=== PATIENT | female | born 1985 | race Caucasian/White ===

== ENCOUNTER 2024-04-06 23:13 | Emergency (ER) | payer OTHER, SELFPAY ==
[2024-04-06 23:19] VITALS: BP 172/105
--- NOTE | 2024-04-07 00:34 | ED.GENMED ---
History of Present Illness
General
Chief Complaint: Fall
Source: patient
Exam Limitations: none
Time Seen by Provider: 04/07/24 00:14
History of Present Illness
History of Present Illness:
This is a 38 year old female that comes in with c/o fall. States that she was just clumsy as she was in the shower and had put her foot up on the ledge. States that her foot fell off and she fell face first into the ledge. States that everything
went black but she did not pass out as she called her right away. states that he heard her fall. States that she was a little nauseated at first. States that she does have a headache. Denies any fever, chills, chest pain, SOB, abd
pain, vomiting, diarrhea, dizziness, urinary burning.
Past History
Past History
ED Past Medical History: Psychiatric (Anxiety, Depression) and Other (endometriosis, Interstitial cystitis. Ovarian cyst)
ED Past Surgical History: None
Social History
Tobacco: Non-smoker
Alcohol: Occasional
Personal:
Living: with family
Review of Systems
Review of Systems
All Other Systems: ROS reviewed and negative except as documented in HPI and ROS
Constitutional: Reports no symptoms; Denies fever or chills
EENT: Reports other (obvious deformity of the nose)
Respiratory: Reports no symptoms; Denies cough or trouble breathing
Cardiac: Reports no symptoms; Denies chest pain
ABD/GI: Reports nausea; Denies abdominal pain, vomiting or diarrhea
: Reports no symptoms; Denies dysuria, frequency or urgency
Musculoskeletal: Reports joint pain (Right knee and right upper arm feels numb)
Skin: Reports other (abrasion to the nose and forehead)
Neurological: Reports headache; Denies dizzy
Psychiatric: Reports no symptoms
Phy Exam
General Physical Exam
General Presentation: mild distress
General age: appears stated age
General Skin: warm and dry
General Habitus: normal
General Mental: alert
General Hydration: appears well hydrated
ENT Exam
ENT Exam: TM's normal, pharynx normal and neck supple
Eye Exam
Eye Exam: EOMI
Cardiovascular Exam
Cardiovascular Exam: regular rate/rhythm, no edema, no murmur and normal peripheral pulses
Pulmonary Exam
Pulmonary Exam: lungs clear, no respiratory distress, no rales, chest non tender, no crackles, no rhonchi, no wheezing and no cough
Gastrointestinal Exam
Gastrointestinal Exam: normal bowel sounds, soft, no organomegaly, no pulsatile mass and non distended
Musculoskeletal Exam
Musculoskeletal Exam: other (Obvious deformity of the nose. Negative for discomfort with palpation medial and lateral knee, tender only over contusion. Negative for discomfort with flexion of the knee. Full ROM of the right arm. Negative cervical
tenderness)
Skin Exam
Skin Exam: normal color, warm/dry, no rash, no petechia and other (abrasion noted over the nose and forehead. Contusion on the right knee )
Psychiatric Exam
Psychiatric Exam: normal mood/affect
Course
Orders/Labs/Results
Orders:
Orders
04/07/24 00:27
CT Facial Bones W/o Iv Contras Urgent
Comment:
Reason For Exam: Fall hitting face.
CT Head W/o Iv Contrast Urgent
Comment:
Reason For Exam: fall hitting face, Headache
Acetaminophen [Tylenol] 1,000 mg PO NOW STA
04/07/24 00:28
Knee, Right 4 or More Views [CR Knee- Right 4 Or More View*] Urgent
Comment:
Reason For Exam: Fall, pain
04/07/24 00:56
HCG, Serum Qualitative Screen Urgent
Test Result ONCE
Vital Signs
Initial and Last Documented VS:
Initial Vital Signs
Pulse Resp BP Pulse Ox
101 20 172/105 99
04/06/24 23:19 04/06/24 23:19 04/06/24 23:19 04/06/24 23:19
Last Documented Vital Signs
Pulse Resp BP Pulse Ox
101 20 172/105 99
04/06/24 23:19 04/06/24 23:19 04/06/24 23:19 04/06/24 23:19
MDM/Problems Addressed
Differential Diagnosis Includes:
accidental fall, Nasal fracture,
MDM/Problems Addressed:
This is a 38 year old female that comes in with c/o fall in the shower. States that her foot slipped on the ledge and she fell hitting her face on the ledge.
Will get CT head and facial bones. Will medicate for pain.
Back into see patient. Explained that her Knee X-ray is negative for any fractures. Her CT of the head is normal and her Facial bones show only nasal fracture. Patient will follow up with the ENT specialist. Will also place on antibiotics due to
small abrasion over the nose. Patient to return with any concerns.
Chronic conditions affecting care:
NA
Acute Exacerbation and/or Progression of Chronic Illness:
NA
*Radiology
Radiology exam reviewed: preliminary read by ED provider (Right knee= Negative for fracture or dislocation. ), radiology read reviewed (CT head and facial bones: Night hawk= Head:No traumatic injury. No acute intracranial findings. CT
maxillofacial:Paranasal soft tissue swelling. Heavily comminuted, displaced bilateral nasal bone fractures with significant leftward deviation of the nasal complex. Displaced fractures anterior most ) and other (CT cont- most aspect of the bony
nasal septum, coronal image6. No other facial or orbital fractures. Orbits appear unremarkable and are symmetric. )
*Pulse Oximetry
Patient hypoxic: no
*EKG
Interpreted by ED Provider?: NA
Rate: EKG- N/A
*Clinching Machine Operator Interpretation
Rate: Clinching Machine Operator- N/A
*Critical Care Note
Total Time (30-74mins, 75-104mins- exclusive of procedures): Not Applicable
ED Attending Note
-
Portions of this chart may have been created with voice recognition software.� Occasional wrong word or��sound alike� substitutions may have occurred due to the inherent limitations of voice recognition software.
Discharge Plan
Departure
Patient Disposition: Home (Routine Discharge)
Date of Disposition: 04/07/24
Time of Disposition: 02:03
Patient with high blood pressure during this ER visit?: Yes
Condition: Good
Covid-19: Not Applicable
Discharge Problem:
Accidental fall, Fracture of nasal bones, Abrasion of nose
Instructions: Wound Care (DC), Skin Abrasions (DC), Nose Fracture ED, BLOOD PRESSURE
Prescriptions:
New
cephalexin 500 mg capsule
500 mg PO TID Qty: 14 0RF
Referrals:
Tc Rodriguez MD [Active] - Follow up in 2-3 days
Olga Molina CRNP [Family Provider] -
Activity Restrictions/Additional Instructions:
As discussed, your CT of the head is normal. Your CT of the facial bones shows you have nasal fractures. This will need follow up with the ENT specialist for further evaluation. Please use Tylenol 1000mg every 6 hours for pain and Ibuprofen 600mg
every 6 hours with food. So if you take Tylenol at 9am, Ibuprofen at 12 noon and then Tylenol again at 3pm and Ibuprofen at 6pm. Continue to use the Ice to help decrease the swelling and the pain. Your X-ray of the knee is negative for any
fractures. You have been given a prescription for an antibiotic. This has been sent to your Pharmacy. Please take as directed. IF YOU HAVE ANY OTHER CONCERNS PLEASE RETURN TO THE EMERGENCY ROOM.
Interventions
Interventions:
*Risk Screen - Suicide Last Done: 04/06/24 23:19
*Neglect/Abuse Screening Last Done: 04/06/24 23:19
*ED COVID-19 Vaccine History Last Done: 04/06/24 23:19
Discharge Date and Time
Print Language: GREENLANDIC
[2024-04-07] MEDS: TYLENOL 1000 MG PO (00:39)
[2024-04-07 02:09] VITALS: BP 129/85
[2024-04-07] MEDS: KEFLEX 500 MG PO (02:14)
== END 2024-04-07 02:21 | disposition home or self-care (01) ==
LOC: EMR 23:13
PROVIDERS: EMERGENCY PHYSICIAN Emergency Medicine; FAMILY PHYSICIAN Nurse Practitioner
DX: S02.2XXA Fracture of nasal bones, initial encounter for closed fracture (principal); S80.01XA Contusion of right knee, initial encounter; S00.31XA Abrasion of nose, initial encounter; S00.81XA Abrasion of other part of head, initial encounter; R11.0 Nausea; R51.9 Headache, unspecified; W18.2XXA Fall in (into) shower or empty bathtub, initial encounter; F41.9 Anxiety disorder, unspecified; F32.A Depression, unspecified
CPT/HCPCS: 99284; 70450; 70486; 73564

== ENCOUNTER 2024-04-12 06:13 | Day surgery (SDC) | payer OTHER, SELFPAY ==
[2024-04-12] VITALS (9 sets, daily range): BP systolic 123–138; BP diastolic 80–89; BMI 25.9
[2024-04-12 12:42] LABS: Hemoglobin 11.7 g/dL (12.0-16.0)
[2024-04-12] MEDS: TYLENOL 1000 MG PO (12:48)
[2024-04-12] MEDS: DILAUDID 0.5 MG IV (14:04)
== END 2024-04-12 15:11 | disposition home or self-care (01) ==
LOC: SDS 06:13
PROVIDERS: ATTENDING PHYSICIAN Otolaryngology
DX: S02.2XXA Fracture of nasal bones, initial encounter for closed fracture (principal); J34.2 Deviated nasal septum; W18.2XXA Fall in (into) shower or empty bathtub, initial encounter; Y93.E1 Activity, personal bathing and showering; Y92.002 Bathroom of unspecified non-institutional (private) residence as the place of occurrence of the external cause
CPT/HCPCS: 21320; 85018

== ENCOUNTER 2024-12-05 17:24 | Emergency (ER) | payer OTHER, SELFPAY ==
[2024-12-05 17:27] VITALS: BP 124/93
[2024-12-05 19:16] LABS: % Basophils 0.3 % (0-2); % Eosinophils 0.1 % (0-6); % Immature Granulocytes 0.6 % (0-0.5); % Monocytes 3.8 % (1.7-9.3); % Neutrophils 89.2 % (42.2-75.2); Absolute Basophils 0.1 10^3/uL (0-0.2); Absolute Immature Granulocytes 0.1 10^3/uL (0-0.05); Absolute Lymphocytes 1.2 10^3/uL (1.2-3.4); Absolute Monocytes 0.8 10^3/uL (0.1-0.6); Absolute Neutrophils 17.8 10^3/uL (1.4-6.5); Hematocrit 37.1 % (37.0-47.0); Hemoglobin 12.8 g/dL (12.0-16.0); Mean Corp Hgb Conc. 34.5 g/dL (33.0-37.0); Mean Corpuscular Hgb 30.6 pg (27.0-31.0); Mean Corpuscular Volume 88.8 fL (81.0-99.0); Mean Platelet Volume 12.2 fL (7.4-10.4); Nucleated Red Blood Cells % 0 %; Platelet Count 339 10^3/uL (130-400); Red Blood Cell Count 4.18 10^6/uL (4.20-5.40); Red Cell Dist. Width 13.2 % (11.5-14.5); White Blood Cell Count 19.9 10^3/uL (4.8-10.8)
[2024-12-05 19:24] LABS: HCG, Serum Qualitative Screen Negative
[2024-12-05 19:27] LABS: Lactic Acid 1.4 mmol/L (0.7-2.0)
[2024-12-05 19:30] LABS: ALT (SGPT) 30 U/L (0-35); AST (SGOT) 26 U/L (14-36); Alkaline Phosphatase 53 U/L (38-126); Blood Urea Nitrogen 10 mg/dl (7-17); Calcium 10.1 mg/dl (8.4-10.2); Carbon Dioxide 21 mmol/L (22-30); Chloride 106 mmol/L (98-107); Glucose 108 mg/dl (70-99); Lipase 79 U/L (23-300); Potassium 4.5 mmol/L (3.5-5.1); Sodium 140 mmol/L (135-145); Total Bilirubin 0.9 mg/dl (0.2-1.3); eGFR > 60.00
--- NOTE | 2024-12-06 09:49 | EDRN ---
Pt called today to follow up on her symptoms prompting her ED visit yesterday. Advised pt of abnormal test results and encouraged follow up with her doctor. Pt denies fever since she had a bowel movement yesterday prior to leaving the ED. Also
advised to return to the ED for any concerning symptoms. Instructions provided to access the health portal to see test results.
== END 2024-12-05 19:25 | disposition left against medical advice (07) ==
LOC: EMR 17:24
PROVIDERS: EMERGENCY PHYSICIAN Emergency Medicine
DX: R50.9 Fever, unspecified (principal); Z53.21 Procedure and treatment not carried out due to patient leaving prior to being seen by health care provider
CPT/HCPCS: 80053; 83605; 83690; 84703; 85025

== ENCOUNTER → 2025-04-29 07:01 | Outpatient (REF) | payer BC, SELFPAY | LOC: EMG 07:01 | PROVIDERS: ATTENDING PHYSICIAN Physical Medicine & Rehabilitation; FAMILY PHYSICIAN Nurse Practitioner | DX: M54.12 Radiculopathy, cervical region (principal); R20.0 Anesthesia of skin | CPT/HCPCS: 95886; 95910 ==